=== PATIENT | female | born 1965 | race Caucasian/White ===

== ENCOUNTER 2018-09-25 15:35 | Emergency (ER) | payer MEDICAID ==
[~2018-09-25] VITALS: Ht 162.6 cm; Wt 65.5 kg
[~2018-09-25 15:35] MED LIST: AMBIEN 5MG TABLE5 MG PO; AMBIEN5 MG PO; B-12 500 MCG; CENA K40 MEQ/15 PO; COMPAZINE 110 MG/TAB PO; IRON325 M2 PO; LASIX 20MG TABL20 MG PO; MULTI VITAMINS1 TAB PO; PRINIVIL10 MG PO; XANAX2 MG PO; ZANAFLEX CAPSULE4 MG PO
[2018-09-25 15:44] VITALS: TEMP 97.1
[2018-09-25 16:10] LABS: BASO % 0.5 % (0.0-2.0); EOS # 0.1 (0.0-0.7); EOS % 0.6 % (0-4.0); GRAN % 75.7 % (42.2-75.2); LYMPH % 13.1 % (20.0-51.0); MEAN CELL VOLUME 102 fl (80.0-100.0); MEAN CORPUSCULAR HEMOGLOBIN 36 pg (27.0-31.0); MEAN CORPUSCULAR HGB CONC 35 g/dl (33.0-37.0); MEAN PLATELET VOLUME 9.6 fl (7.4-10.4); MONO # 0.7 (0.1-0.6); MONO % 8.7 % (1.7-9.3); PLATELET COUNT 200 K/mm3 (130-400); RED BLOOD COUNT 3.35 M/mm3 (4.10-5.30); REDCELL DISTRIBUTION WIDTH-CV 17.6 % (11.5-14.5)
[2018-09-25 16:13] LABS: HEMATOCRIT 34.1 % (37.0-47.0)
[2018-09-25 16:14] LABS: INR 0.9 (0.8-3.0); PROTHROMBIN TIME 9.9 SECONDS (9.7-12.8)
[2018-09-25 16:24] LABS: ALANINE AMINOTRANSFERASE 6 U/L (9-52); ALBUMIN 3.5 gm/dL (3.5-5.0); ALKALINE PHOSPHATASE 121 U/L (50-136); ANION GAP 11 mmol/L (7-16); AST,SGOT 23 U/L (15-37); BILIRUBIN,TOTAL 0.3 mg/dL (0.0-1.0); BLOOD UREA NITROGEN 12 mg/dL (7-17); C-REACTIVE PROTEIN 1.7 mg/dL (0.0-0.9); CALCIUM 9.7 mg/dL (8.4-10.2); CARBON DIOXIDE 21 mmol/L (22-30); CHLORIDE 98 mmol/L (98-107); CREATINE KINASE 25 U/L (30-135); CREATININE, serum 0.43 (0.52-1.25); GLUCOSE 119 mg/dL (74-106); MAGNESIUM 1.7 mg/dL (1.6-2.3); POTASSIUM 3.1 mmol/L (3.4-5.0); SODIUM 129 mmol/L (137-145); TOTAL PROTEIN 6.7 gm/dL (6.4-8.2)
[2018-09-25 16:30] LABS: ALCOHOL(ethanol),MEDICAL < 10 mg/dL; LIPASE 2290 U/L (23-300)
[2018-09-25 16:35] LABS: TROPONIN-I < 0.012 ng/mL (0.000-0.035)
[2018-09-25] MEDS ORDERED: AMBIEN 10MG10 MG PO (16:43)
[2018-09-25] MEDS ORDERED: ZOFRAN 4MG T4 MG/TAB PO (16:44)
[2018-09-25] MEDS ORDERED: PRIL40 PO (16:44)
[2018-09-25] MEDS ORDERED: FLECTOR1.3% (16:45)
[2018-09-25] MEDS ORDERED: BUSPAR5 MG PO (16:46)
[2018-09-25] MEDS ORDERED: ZOLOFT 100MG100 MG PO (16:47)
[2018-09-25] MEDS ORDERED: ARMOUR THYROID60 MG PO (16:48)
[2018-09-25] MEDS ORDERED: PROVENTIL0.09 MG/A1 IH (16:49)
[2018-09-25] MEDS ORDERED: FIORICET 325 MG1 TA1 PO (16:49)
[2018-09-25 17:37] LABS: COLLECTION METHOD CLEAN CATCH
[2018-09-25 17:43] LABS: PH 7 (5-8); SQUAMOUS EPITHELIAL 0-2 /hpf; URINE APPEARANCE Clear; URINE BACTERIA Rare /hpf; URINE BILIRUBIN Negative (NEGATIVE); URINE BLOOD Negative (NEGATIVE); URINE COLOR Straw; URINE GLUCOSE Negative (NEGATIVE); URINE KETONE Negative (NEGATIVE); URINE LEUKOCYTE ESTERASE Negative (NEGATIVE); URINE NITRATE Negative (NEGATIVE); URINE PROTEIN(semi-quant) Negative (NEGATIVE); URINE RBC 0-2 /hpf; URINE UROBILINOGEN Negative (NEGATIVE)
[2018-09-25 19:42] VITALS: BP 162/108; PULSE 85
== END 2018-09-25 18:06 | disposition short-term general hospital (02) ==
LOC: COL.ER 15:35
PROVIDERS: Emergency Medicine
DX: K85.90 Acute pancreatitis without necrosis or infection, unspecified (principal); R53.1 Weakness; F32.9 Major depressive disorder, single episode, unspecified; F41.9 Anxiety disorder, unspecified; I10 Essential (primary) hypertension; Z98.51 Tubal ligation status; Z98.890 Other specified postprocedural states; Z98.84 Bariatric surgery status
CPT/HCPCS: J2405; J7030

== ENCOUNTER 2018-10-02 15:33 | Inpatient (IN) | payer MEDICAID ==
[~2018-10-02] VITALS: Ht 162.6 cm; Wt 69.8 kg
[~2018-10-02 15:33] MED LIST changes: +AMBIEN 10MG10 MG PO; +ARMOUR THYROID60 MG PO; +BUSPAR5 MG PO; -CENA K40 MEQ/15 PO; +FERRO-TIME325 MG PO; +FIORICET 325 MG1 TA1 PO; +FLECTOR1.3% TOP; -IRON325 M2 PO; +K-DUR20 MEQ PO; +PRIL40 PO; +PROVENTIL0.09 MG/A1 IH; +ZANAFLEX 4MG TAB4 MG PO; -ZANAFLEX CAPSULE4 MG PO; +ZOFRAN 4MG T4 MG/TAB PO; +ZOLOFT 100MG100 MG PO
[2018-10-02] MEDS ORDERED: ROXICODONE 55 MG/TAB PO (19:49)
[2018-10-02] MEDS ORDERED: LYRICA 100MG C100 M1 PO (19:50)
[2018-10-02] MEDS ORDERED: FIORICET 325 MG1 TA1 PO (19:54)
[2018-10-02 19:57] VITALS: BP 97/66; PULSE 80; TEMP 98.3
--- NOTE | 2018-10-02 20:35 | NUR ---
Report from nurse Nika at [facility]. Pt arrived at shift change via transport service. JONATHON Mcgovern settled pt in room 335 and edu about ordering meals. Report to NAMAN Coronado. This nurse will enter pt's meds and that is all.
[2018-10-03 04:58] VITALS: BP 104/68; PULSE 96; TEMP 98
--- NOTE | 2018-10-03 06:30 | NUR ---
PT REQUEST MORE FIORCET. TOO SOON. RELATES MIGRAINE IS ON THE WAY TO BE FULL BLOWN. SEE MAR FOR ROXICODOE GIVEN. SCD'S APPLIED. RT EYE LID HALF MAST AT TIMES.
--- NOTE | 2018-10-03 07:58 | NUR ---
Report from NAMAN Coronado. SCDs in place, good pulses to BLE, left heel pink but blances. Pt reports she is lactose intolerant since gastric bypass; however, she reports tried milk and hot ramon this morning so she may become sick to her stomach.
--- NOTE | 2018-10-03 13:26 | NUR ---
Initial visit; Patient thanked Auto Bumper Mechanic for looking in on her, listening and offering spiritual care. Patient is optimistic about her health improving through physical therapy. Auto Bumper Mechanic will keep patient in her prayers and follow up while she is a patient here.
--- NOTE | 2018-10-03 14:13 | NUR ---
Pt asking for benadryl for pruritis, no orders for it, left voicemail with Dr. Beatty.
--- NOTE | 2018-10-03 14:16 | NUR ---
brought a different home med than requested, instructed him to re-order med from pt's pharmacy as they were out of med at home.
--- NOTE | 2018-10-03 15:56 | NUR ---
Faxed Dr. Lechuga' office request for orders for weight bearing status and ROM orders for pt's LENNIE
[2018-10-03 16:04] VITALS: BP 118/69; PULSE 87; TEMP 98.8
--- NOTE | 2018-10-03 16:21 | NUR ---
SW met with patient for initial intake, as patient is new to [facility]. Patient reports that prior to her hospitalization at [facility], she lived relatively independent at home with help from her boyfriend, Roberto. Patient's PCP is KIET Clark and she obtains prescriptions from [facility] in [facility]. Patient reports she has a front wheeled walker and wheelchair at home but has not needed to use them. Patient does not have any home health services but would be interested in any services that would help her clean, cook, grocery shop, and provide meals. Patient reported that her insurance has a program called [employer] that provide these services. SW reported she will look into this program. SW also informed patient of Saturday Team Conference's and also that the [facility] will try to schedule a family conference at least once during her time in rehab.
--- NOTE | 2018-10-03 20:30 | NUR ---
PT RESTING IN BED. BOYFRIEND APPLYING LOTION TO BLE. THEN PLACED SCD'S ON. PT DENIED NEED FOR PAIN MED A THIS TIME. NO HEADACHE. WANTS AMBIEN LATER.
--- NOTE | 2018-10-03 23:48 | NUR ---
PT REQUESTED PAIN MED PER CALL LIGHT. ATTEMPTED TO WAKE PT UP TO SEE WHAT SHE NEEDED. HAD TO SHAKE HER ARM. DIFFICULT TO WAKE AND UNDERSTAND- VERY DROWSY. TOO SOON FOR PAIN MEDICATION. PT RETURNED TO SLEEP.
--- NOTE | 2018-10-04 01:45 | NUR ---
GAVE FIORCET FOR MIGRAINE PER REQUEST FOR "ON THE EDGE OF A SEVERE MIGRAINE". ASSISTED TO BSC. VERY UNSTEADY. PT VERY TALKATIVE. VOIDED LARGE AMT OF CLEAR DILUTE YELLOW URINE. ABLE TO MANAGE TOILETING TASKS WHILE MAX STEADYING NEEDED BY STAFF. KNEES VERY UNSTABLE PT REQUESTED OXYCODONE FOR "TERRIBLE MUSCLE PAIN ALL OVER". SEE MAR. SCD'D ON, CALL LIGHT IN REACH. BED ALARM SET.
--- NOTE | 2018-10-04 02:21 | NUR ---
PT NOW WANTS BENADRYL FOR ITCHING. "MAYBE I'LL GO TO SLEEP." PT READING ON HER CELL PHONE. NO DISTRESS.
[2018-10-04 05:17] VITALS: BP 133/71; PULSE 96; TEMP 98.8
--- NOTE | 2018-10-04 08:00 | NUR ---
PT STATES SHE ALWAYS HAS PAIN AND IT IS 4/10. SO SHE IS OK FOR NOW. SHE DID TAKE HER FIORECET THIS AM. PT WAS ASSISTED TO BR AND THEN GOT CHANGED FOR THERAPY. ATE 100% MEAL. GAVE AM MEDS, TOLERATED THEM WELL. NICODERM PATCH REMOVED FROM LEFT UPPER SHOULDER AND NEW ONE PLACED TO RIGHT UPPER BACK ON HER SHOULDER. PT REPORTED FEELING NAUSEATED FROM THE FARFAN SO WAS GIVEN ZOFRAN FOR RELIEF. PT WENT DOWN TO THERAOY AT 0920
--- NOTE | 2018-10-04 10:39 | NUR ---
PT HAD A SMALL GREENISH STOOL SF.
--- NOTE | 2018-10-04 10:40 | NUR ---
PT LEAVES WITH THERAPY
--- NOTE | 2018-10-04 10:45 | NUR ---
Patient was gone to Physical Therapy.
--- NOTE | 2018-10-04 11:30 | NUR ---
RETURNS FROM THERAPY, BACK TO ROOM
--- NOTE | 2018-10-04 15:21 | NUR ---
SLEEPING IN BED
[2018-10-04 17:39] VITALS: BP 118/72; PULSE 91; TEMP 98.6
--- NOTE | 2018-10-04 19:45 | NUR ---
PT RELATES PAIN IS LEVEL 8/10 ALL OVER. SEE MAR FOR OXYCODONE. PT HAS GENERAL WEAKNESS. NEED MOD ASSIST TO TRANSFER BSC. VOIDING ITHOUT DIFFICULTY. SCD'S ON BILAT. BOYFRIEND AT BEDSIDE. HE IS STAYING THE NIGHT.
[2018-10-05 06:00] VITALS: BP 131/70; PULSE 55; PULSE 98; TEMP 98.2
--- NOTE | 2018-10-05 09:59 | NUR ---
Report from NAMAN Coronado. Pt called to toilet, assit w/ hemiwalker and offered hand to pt's left arm. Returned to bed, declined sitting up in recliner nor wc. SO Roberto powell.
[2018-10-05 16:36] VITALS: BP 136/82; PULSE 89; TEMP 99.1
--- NOTE | 2018-10-05 18:32 | NUR ---
Zofran for nausea, pt thinks from egg salad sandwich
--- NOTE | 2018-10-05 19:49 | NUR ---
Pt's teenage grandsons visited this afternoon and played cards with pt. Increased pain this afternoon, provided pain meds, KPAD, warm blanket, pillow under legs, broth.
--- NOTE | 2018-10-05 20:30 | NUR ---
PT RESTING IN BED. WATCHING TV. C/O LOWER PORTION OF BODY HURTS WORSE THAN EVER BEFORE. NO CHANGE IN VACULAR CHECKS. PPP. SKIN WARM TO TOUCH. ABLE TO FLEX AND EXTENEND. GAVE SCHEDULE PM MEDS. INCLUDING LYRICA. WILL GIVE PAIN WHEN TIME. WANTS TO USE BED MEADOWS. ENC TO USE BSC WITH ASSIST. CHET WELL. VOIDS W/O DIFFICULTY. RETURNS TO BED.
[2018-10-06 05:30] VITALS: BP 143/70; PULSE 70; TEMP 98
--- NOTE | 2018-10-06 11:00 | NUR ---
Follow-up visit; Patient thanked Automotive Specialty Technician for stopping in and offering encouragement and Blessings.
--- NOTE | 2018-10-06 11:29 | NUR ---
Patient reporting headache pain and was worried about getting a migrain given prn fioricet and benadryl. Patient attending all therapies this morning. Nicoderm patch was placed on patient's right shoulder this morning, but after therapies down in the therapy gym her patch was gone. Staff found patch attached to a pillow downstairs. This patch was discarded and new patch was applied to arm.
--- NOTE | 2018-10-06 12:09 | NUR ---
Patient resting in bed at this time, call light in reach and meeting with Dr. Beatty. Patient had a shower this morning, taking prn pain meds that have been effective. Patient is independent with eating.
--- NOTE | 2018-10-06 14:12 | NUR ---
ORIANA contacted the pt's insurance to inquire about home services for the pt. The pt has to contact the Physical Disablity (PD) Waiver Program at to apply and be put on a waiting list. The pt has a top case assembler for behavior health medication management Courtney Garcia at extension [phone]. SW will inform the patient. ORIANA will continue to follow to assist with any discharge recommendations.
--- NOTE | 2018-10-06 14:42 | NUR ---
ORIANA met with the patient to discuss home services. The pt reports she has nisha applied for the PC Waiver with assistance from her PCP and the [facility] in [place]. SW attempted to contact Rama Hawkins at [facility] and left message. The pt reports that [facility] was going to provide some of the home services. ORIANA will continue to follow to assist with discharge recommendations.
[2018-10-06 15:35] VITALS: BP 115/77; PULSE 85; TEMP 98.2
--- NOTE | 2018-10-06 18:06 | NUR ---
Patient resting in bed at this time following eating her supper. Patient requested a pain pill as well as a benadryl to help with itching. Patient not reporting any nausea this afternoon. Tolerated diet well this afternoon and evening. Will continue to monitor.
--- NOTE | 2018-10-06 20:00 | NUR ---
Patient requests pain med for breakthrough pain and scheduled meds along with fiorocet reviewed and given. Patient states didn't bring her home med/not given. Assisted to the bathroom/min to mod assist. Holds onto nurses arm with left hand for stability and has nurse assist with left side of underwear up/wipes self. SCD's removed and socks removed for now. BLE elevated on pillow and kpad turned on-to patients legs. Snack of broth and diet pepsi given. Senokot s given for constipation.
--- NOTE | 2018-10-07 02:00 | NUR ---
Patient rests with eyes closed. Respirations with ease.
[2018-10-07 03:59] VITALS: BP 131/69; PULSE 106; TEMP 98.1
--- NOTE | 2018-10-07 08:27 | NUR ---
Patient resting in bed at this time, call light in reach. Patient using kpad for pain at this time. Some nausea this am given prn nausea med.
--- NOTE | 2018-10-07 12:35 | NUR ---
Patient resting in bed at this time, call light in reach and bed alarm is on. Patient reported pain 6/10 at this time with pain increasing. Given prn Oxi with Benadryl to help with itching. Will continue to monitor.
[2018-10-07 15:50] VITALS: BP 113/63; PULSE 82; TEMP 97.8
--- NOTE | 2018-10-07 16:35 | NUR ---
SW met with the patient to discuss Home and Community Bases Programs. The pt provided a letter of approval for [employer]: TAJ ID: [id number] FREDYO: John. SW placed a copy of approval letter in the pt's chart. ORIANA will continue to follow.
--- NOTE | 2018-10-07 17:39 | NUR ---
Patient attended all therapies today, had some leg weakness this afternoon following group therapy. Patient has had a nap this afternoon and is currently eating supper at this time.
--- NOTE | 2018-10-07 19:00 | NUR ---
Reports feeling very queezy and zofran 4mg given. 1 hour later states zofran helped and no further nauseated.
--- NOTE | 2018-10-07 22:19 | NUR ---
Patient now rests in bed with eyes closed. Respirations with ease.
--- NOTE | 2018-10-08 00:56 | NUR ---
Patient awake and took ambien at this time. Requested fiorecet for breakthrough pain legs and left arm 09/03 and given.
--- NOTE | 2018-10-08 02:10 | NUR ---
Patient rests with eyes closed. Respirations with ease.
[2018-10-08 05:04] VITALS: BP 114/68; PULSE 90; TEMP 98.3
--- NOTE | 2018-10-08 05:10 | NUR ---
Awakened for vitals and meds. Denies needs. "Just wish you didn't have to wake me up this early".
[2018-10-08 07:03] LABS: BILIRUBIN,TOTAL 0.1 mg/dL (0.0-1.0); CALCIUM 9.1 mg/dL (8.4-10.2); CREATININE, serum 0.48 (0.52-1.25); MAGNESIUM 1.8 mg/dL (1.6-2.3); POTASSIUM 3.6 mmol/L (3.4-5.0); TOTAL PROTEIN 6.8 gm/dL (6.4-8.2)
[2018-10-08 07:13] LABS: BASO # 0.1 (0.0-0.2); BASO % 1.6 % (0.0-2.0); EOS # 0.1 (0.0-0.7); EOS % 1.3 % (0-4.0); GRAN # 2.1 (1.4-6.5); GRAN % 55.6 % (42.2-75.2); LYMPH # 1.1 (1.2-3.4); LYMPH % 28.1 % (20.0-51.0); MEAN CELL VOLUME 108 fl (80.0-100.0); MEAN CORPUSCULAR HGB CONC 32 g/dl (33.0-37.0); MONO # 0.5 (0.1-0.6); MONO % 12.6 % (1.7-9.3); PLATELET COUNT 242 K/mm3 (130-400); RED BLOOD COUNT 2.66 M/mm3 (4.10-5.30); REDCELL DISTRIBUTION WIDTH-CV 16.9 % (11.5-14.5)
[2018-10-08 07:17] LABS: HEMATOCRIT 28.6 % (37.0-47.0); HEMOGLOBIN 9.2 g/dl (12.5-16.0); MEAN CORPUSCULAR HEMOGLOBIN 35 pg (27.0-31.0)
--- NOTE | 2018-10-08 07:46 | NUR ---
Pt is awake and A/Ox4, sitting up in bed watching TV. She states she is having 7/10 pain/discomfort in her arms and legs; requested PRN roxicodone for this. Reports continued feeling of "pins and needles." Pt able to reposition herself in bed. Able to make needs known. Denies any other needs.
--- NOTE | 2018-10-08 11:22 | NUR ---
Pt resting in bed, hoping to take a nap before lunch. Denies any other needs.
--- NOTE | 2018-10-08 13:01 | NUR ---
Pt requested PRN fiorecet for headache. Pt to PT at this time.
--- NOTE | 2018-10-08 16:01 | NUR ---
ORIANA met with the patient to discuss the Team Conference I and discharge recommendations. The pt inquired about the [facility] and Home and Community Based Programs. SW to follow up with Rama Hawkins at [facility]. The pt had no other questions at this time. The team is recommending a robb-walker. SW to send order for robb-walker. The team is recommending home health. The only agency that provides serivce to [place] is [facility]. ORIANA attempted to contact Ja[facility] to verify they would take the pt's insurance. ORIANA left message. ORIANA will continue to follow.
[2018-10-08 18:55] VITALS: BP 130/78; PULSE 101; TEMP 98.2
--- NOTE | 2018-10-08 20:00 | NUR ---
PT RESTING IN BED. ASSISTED TO BR. VERY WEAKLOOSE GAIT. POOR GENERLIZED MUSCLE CONTROL OF EXTREMITIES. PT RELATES "HURTS SO BAD". ALL OVER BUT ESPECIALLY LEGS AND FEET. BURNING, TINGLING SENSATAION OF FEET. K PAD TO ABD AREA FOR MUSCLE PAIN. TOO SOON FOR PAIN MED- OXYCODONE.
[2018-10-09 05:01] VITALS: BP 143/89; PULSE 95; TEMP 98.6
--- NOTE | 2018-10-09 05:05 | NUR ---
ASSISTED TO BR WITH HEMIWALKER. VERY UNSTEADY GAIT WITH VERY WEAK KNEES. HAD XL GREEN ELDER FROTHY STOOL WITH VOID. BACK TO BED. C/O PAIN LOWER HALF OF BODY LEVEL 10/04. SEE APR.
--- NOTE | 2018-10-09 11:38 | NUR ---
pt back to bed after therapy.
--- NOTE | 2018-10-09 13:56 | NUR ---
PT SLEEPING AFTER THERAPY.
--- NOTE | 2018-10-09 13:57 | NUR ---
Spoke w/ pt about Family Conference for 10/13/18. She thought that sounded fine but wanted to know if it could be later in the day. Told her the latest we could do is 3:00 pm. She told SW she would take with her friends & let SW know tomorrow.
--- NOTE | 2018-10-09 15:39 | NUR ---
PT UP TO BR VOIDED AND RETURNED TO BED WITH HANDS ON ASSIST.
[2018-10-09 17:09] VITALS: BP 149/92; PULSE 84; TEMP 98.5
--- NOTE | 2018-10-09 20:00 | NUR ---
PT RESTING IN BED WATCHING TV. WAITING UNTIL ITS TIME FOR PAIN MED. PT RELATES PRICKLY FEELING TO LEGS IS WORSE TONIGHT.
[2018-10-10 04:47] VITALS: BP 138/90; PULSE 95; TEMP 98.4
--- NOTE | 2018-10-10 11:30 | NUR ---
Patient attended therapies this morning. Given zofran for nausea this morning. Patient currently resting in recliner at this time, call light in reach and chair alarm is on. Will continue to monitor.
--- NOTE | 2018-10-10 11:55 | NUR ---
Patient resting in bed at this time eating her supper. Bed alarm is on.
[2018-10-10 16:28] VITALS: BP 144/89; PULSE 90; TEMP 98.9
--- NOTE | 2018-10-10 16:30 | NUR ---
ORIANA faxed referral to [facility]. ORIANA will continue to follow. F# P#
--- NOTE | 2018-10-10 17:50 | NUR ---
Patient attended all therapies today. She tolerated all her meals well. Pain was controlled with prn pain meds. Continues to have numbness/tingling to lower extremities and generalized pain as well. Patient has slip proof socks on, call light in reach and family by her side. Patient needed incidental help with grooming due to not being able to reach back of head to comb it. She took pills whole with water independently. Was able to make her needs known.
--- NOTE | 2018-10-10 19:50 | NUR ---
Pt resting in bed after ambulating to bathroom with PCT. Pt c/o pain 8 primarily in bilateral legs. Pain is described as burning. Tylenol given. It is not time for Oxycodone. Pt states she will see if the Tylenol will help. Pt also reports some increased nausea since eating dinner. PRN Zofran given per patient requested. Respirations are even and unlaobred. Lungs clear. Abdomen soft, nontender. BS+. Pt reports "pins and needles feeling" in bilateral upper and lower extremities. Pt denies further needs at this time. Will continue to monitor.
--- NOTE | 2018-10-10 21:18 | NUR ---
Pt reports increased pain 9/10 in bilateral lower extrimities- burning. Pt states Tylenol did not help. PRN pain medication given. Pt also reports that Zofran did not help nausea. PRN Compazine given. Scheduled HS medication given. Pt also gave nurse her home Flector patches to be sent to pharmacy to use. No other needs noted. Will continue to monitor.
--- NOTE | 2018-10-10 22:18 | NUR ---
Pt reports nausea has resolved, but pain has not decreased much. Pain is now a 7/10. Pt denies needs.
--- NOTE | 2018-10-11 00:15 | NUR ---
Pt assisted to bathroom with hemiwalker and gait belt. Well tolerated. Pt voiding clear, yellow urine. Small soft formed BM. Pt c/o pain 7/10 in Bilateral upper and lower extremities- burning. she is also c/o a headache-/10. Fioricet PRN given.
[2018-10-11 05:00] VITALS: BP 143/85; PULSE 101; TEMP 97.9
--- NOTE | 2018-10-11 05:10 | NUR ---
Pt back in bed after ambulating to bathroom and back with PCT. Pt is resting in bed. No distress noted. Pt states her pain has increased to 6-7/10 in bilateral lower extremities after ambulation. Pain is described as burning. PRN pain medication given. Pt does report sleeping "much better" last night. No other needs noted.
--- NOTE | 2018-10-11 13:36 | NUR ---
A robb-walker is being recommended for the patient. ORIANA presented the DME choice form to the pt. The pt chose [facility] and signed the form. A copy was provided to the pt and original was placed in pt's chart. ORIANA faxed physician order form, HNP and PT notes to . ORIANA attempted to contact [facility] there was no answer; ORIANA left message. ORIANA will continue to follow.
[2018-10-11] MEDS ORDERED: FLECTOR1.3% TOP (13:53)
--- NOTE | 2018-10-11 14:22 | NUR ---
0800 - MEDS GIVEN THIS AM. PT ATE HER MEAL. PT WAS GIVEN MIRALAX PER REQUEST AND PT HAD AN EXTRA LARGE SF GREENISH STOOL. 0930 - PT LEFT WITH THERAPY 1030 - PT RETURNS FROM THERAPY WALKING WITH ALICE WALKER. 1200 - GETS LUNCH TRAY. UP TO VOID TWICE.
--- NOTE | 2018-10-11 15:24 | NUR ---
SLEEPING WITH RESP EVEN AND NON LABORED
[2018-10-11 17:02] VITALS: BP 117/75; PULSE 101; TEMP 98.6
--- NOTE | 2018-10-11 20:00 | NUR ---
Patient report received from NAMAN Damon at shift change. Upon assessment at this time patient is resting comfortably in bed. Reports pain at 5/10 to left shoulder, prn paulette, benadryl and zofran given at this time with HS meds. Patch applied to left shoulder and reinforced with paper tape. No other needs reported/observed.
[2018-10-12 03:28] VITALS: BP 133/75; PULSE 94; TEMP 97.5
--- NOTE | 2018-10-12 07:10 | NUR ---
Patient report given to NAMAN Damon. Patient is resting comfortably at this time.
--- NOTE | 2018-10-12 11:09 | NUR ---
PT IS IN BED. REPORTS PAIN GENERALZIED WAS GIVEN EDY AND BENADRYL AT 1015.
--- NOTE | 2018-10-12 13:57 | NUR ---
PT WAS GIVEN TYLENOL 650 MG FOR GENERAL DISCOMFORT
[2018-10-12 15:44] VITALS: BP 136/81; PULSE 80; TEMP 97.7
--- NOTE | 2018-10-12 19:20 | NUR ---
Pt resting in bed. Pt reports pain 7/10- pins and needles. Helped up to bathroom with hemiwalker. Voiding clear, yellow urine. Respriations even and unlaobred. Lungs clear. Abdomen soft, nontender. BS+. No edema noted. Pt denies needs at this time. Will continue to monitor.
--- NOTE | 2018-10-12 20:30 | NUR ---
Pt called c/o nausea d/t unrelieved pain. PRN Zofran given. Will bring PRN pain medication when appropriate.
--- NOTE | 2018-10-12 21:54 | NUR ---
PRN pain medication given for pain 7/10- generalized burning/"pins and needles".
[2018-10-13 03:47] VITALS: BP 146/88; PULSE 87; TEMP 97.6
--- NOTE | 2018-10-13 05:35 | NUR ---
Pt resting this AM. Pt slept periodically throughout the night. Up multiple times to bathroom with hemiwalker. Well tolerated. Pt c/o tingling/burning pain in Bilateral upper and lower extremities. PRN pain medication given x2 doses. Pt denies needs.
--- NOTE | 2018-10-13 08:54 | NUR ---
[facility] reports they do have a robb-walker for the pt. Patient has to worm picker; they do not deliver. SW to inform the pt. SW will continue to follow.
--- NOTE | 2018-10-13 10:34 | NUR ---
Patient currently resting in bed, call light in reach, bed alarm on and has slip proof socks on. Patient tolerated meal this morning. Denies any nausea at this time, but did get a prn nausea med with her breakfast this morning. Pain has been managed with prn oxi this morning and has been effective. Patient was independent with her meal, was independent with her grooming. Was a one person SBA with transferring from bed to toilet and back. Patient picked out her own clothes this morning and got herself fully dressed on her own. Patient has an excellent memory and is great a problem solving.
--- NOTE | 2018-10-13 11:06 | NUR ---
[facility] reports they can accept the pt for home health services. SW to inform pt. SW will continue to follow.
--- NOTE | 2018-10-13 15:00 | NUR ---
A Family Conference was conducted with pt & pt's significant other. Also present was PT, OT, SW, & Torch Straightener. Torch Straightener started by explaining the purpose of the meeting. The therapists explained how pt has been functioning & making good progress. Informed them of d/c for , 10/16/18 with recommendations for home w/ home health PT/OT. Also recommending a hemiwalker. They asked questions which team answered. Pt & significant other are pleased with progress & care pt is receiving.
[2018-10-13 16:28] VITALS: BP 143/88; PULSE 79; TEMP 98.2
--- NOTE | 2018-10-13 19:00 | NUR ---
Pt resting in bed. Ambulated to bathroom with 1 assist and hemiwalker. Well tolerated. Voiding clear, yellow urine. Pt reports generalized tingling pain in extremities- 6/10. Respirations even and unlabored. Lungs clear. Abdomen soft, nontender. BS+. Pt reports some nausea after eating dinner. Pt also c/o epigastric tightness/pressure. She states that it happens every night after dinner. No needs noted. Will continue to monitor.
--- NOTE | 2018-10-13 19:00 | NUR ---
Patient's boyfriend came by to visit this afternoon. Patient attended all therapies today and tolerated diet well. She has been making healthy choices for her meals.
--- NOTE | 2018-10-13 19:15 | NUR ---
Pt refuses Flector patch tonight. She states she only puts them on when her shoulder is "really hurting". Pt denies shoulder pain citing that PT "did not work it today". AM Flector patch removed, but not replaced.
[2018-10-14 05:18] VITALS: BP 122/77; PULSE 95
--- NOTE | 2018-10-14 05:30 | NUR ---
Pt up to bathroom and back to bed with 1 assist and hemiwalker. Pt c/o headache and generalized body tingling pain. PRN and AM meds given. Pt slept periodically throughout the night and denies further needs.
[2018-10-14 17:37] VITALS: BP 138/79; PULSE 100; TEMP 98
--- NOTE | 2018-10-14 20:03 | NUR ---
Patient attended all therapies today. Tolerated diet well. Was observation only with all transfers. Patient wiped and pulled her pants up and down independently. She was continent of Bowel and Bladder. Uses her call light appropriatly. Patient had an episode of very irritating pain that was tingling sharp twinges to bilateral arms and hands. She requested that her arm bands be removed as they were driving her crazy. This nurse placed her arm bands on her right ankle for the evening. The nurse in the AM can place them back on her wrist tomorrow.
--- NOTE | 2018-10-14 22:20 | NUR ---
HS meds along with fioricet, roxycodone and benadryl reviewed and given. Declines snack. Rests in bed and complaints of 8/10 headache, BLE burning and left shoulder pain. BP 146/66. SCD's removed per patient request. (states was taking lisinopril BID amd nurse noted now is QD in am.)
--- NOTE | 2018-10-15 01:49 | NUR ---
Rests with eyes closed. Respirations with ease.
--- NOTE | 2018-10-15 05:17 | NUR ---
STATES RESTED WELL TONIGHT AFTER SLEEPING PILL
[2018-10-15 05:21] VITALS: BP 142/86; PULSE 91; TEMP 98
--- NOTE | 2018-10-15 10:12 | NUR ---
Report from NAMAN Diaz. Pt showering with OT, alert, oriented, pain meds given per request. Takes pills with thin liquids, large K+ tabs cut in half. Diclofenac patch to left upper arm, nicotine patch to RUE. Cont to report numbness up to armpits, with generalized feeling of knives.
--- NOTE | 2018-10-15 13:09 | NUR ---
Pt refusing SCDs as she states they aggravate her neuropathy pains.
--- NOTE | 2018-10-15 14:57 | NUR ---
SW present team conference notes to the pt. The pt discussed how happy she was with her progress and was happy with her care. There are no questions or concerns at this time. SW will continue to follow.
--- NOTE | 2018-10-15 15:02 | NUR ---
Diaz CPTA called this nurse at this time to report that pt had a fall during therapy session while in the parallel bars, pt reported wanting to stretch her left leg so she raised it up higher than usual and pt's right knee buckled and she fell. Pt denied any pain or complications and returned to her room. This nurse had checked on patient prior to knowledge of fall and pt was sitting bedside, only c/o same pains but lesser than prior to pain med being given.
[2018-10-15 15:25] VITALS: BP 130/80; PULSE 85; TEMP 98.2
--- NOTE | 2018-10-15 22:00 | NUR ---
Rests in bed visiting on phone. Reports different types of pain all over body. Legs "feel like razor blades going down them". HS meds along with fiorcet reviewed and given. Patient is modified independent in her room with robb-walker.
--- NOTE | 2018-10-15 23:39 | NUR ---
Patient reports legs feeling weak/painful since rubbed them on bed and next to each other and requests supervision to and from bathroom/done. Ambulates hesitant and careful/manages all toileting tasks and rests back in bed. Requests nurse to place pillow under RLE and pull blankets up/done.
[2018-10-16 05:31] VITALS: BP 138/76; PULSE 92; TEMP 97.9
[2018-10-16] MEDS ORDERED: FERROUS SU325 MG/TAB PO (11:23)
[2018-10-16] MEDS ORDERED: ZESTRIL 10MG10 MG PO (11:24)
[2018-10-16] MEDS ORDERED: LYRICA 100MG C100 M1 PO (11:34)
[2018-10-16] MEDS ORDERED: ROXICODONE 55 MG/TAB PO (11:34)
--- NOTE | 2018-10-16 11:44 | NUR ---
The pt is to discharge home today, 10/16 with [facility] out of [place]. ORIANA faxed discharge orders. There are no additional needs at this time.
[2018-10-16] MEDS ORDERED: ZOFRAN 4MG T4 MG/TAB PO (11:45)
[2018-10-16] MEDS ORDERED: CHANTIX START M1 TAB PO (11:45)
--- NOTE | 2018-10-16 15:37 | NUR ---
Pt mod I in room with brit. Pain meds given per request. No acute changes. Denies any side effects of fall from yesterday.
[2018-10-16 15:41] VITALS: BP 118/79; PULSE 86; TEMP 98.3
--- NOTE | 2018-10-16 18:35 | NUR ---
Reviewed discharge orders.
--- NOTE | 2018-10-16 20:01 | NUR ---
Printed pt health summary, discharge summary, home med list and reviewed with pt and SO Roberto. Stressed importance of follow up appointments and home health orders for labs. Provided three printed prescriptions and pt made note of OTC meds pt needed to get from her pharmacy, pt states her pharmacy confirmed receipt of new meds e-scripted. Belongings gathered by pt and SO including home med flector patches, sling, glasses, computer, cell phone and international marketing intern, grooming items, clothes, two gold-colored bracelettes and gold pendant necklace. Revised copy of home med list to chart. Answered pt's questions. Pt toileted, then transported via wheelchair by JONATHON Mcgovern for ride home with DEEPA Mejia.
== END 2018-10-16 18:40 | disposition home health service (06) | DRG 947 ==
PROVIDERS: ADMIT Internal Medicine
DX: R53.81 Other malaise (principal); K85.90 Acute pancreatitis without necrosis or infection, unspecified; G61.0 Guillain-Barre syndrome; G89.29 Other chronic pain; M54.5 Low back pain; I10 Essential (primary) hypertension; E03.9 Hypothyroidism, unspecified; K21.9 Gastro-esophageal reflux disease without esophagitis; M54.9 Dorsalgia, unspecified; F10.10 Alcohol abuse, uncomplicated; F41.9 Anxiety disorder, unspecified; F32.9 Major depressive disorder, single episode, unspecified; F17.210 Nicotine dependence, cigarettes, uncomplicated; Z96.652 Presence of left artificial knee joint; Z88.6 Allergy status to analgesic agent
CPT/HCPCS: 99222-AI; 99232-AI; 99239; A9284; J1650

== ENCOUNTER 2019-04-17 10:41 | Inpatient (IN) | payer MEDICAID ==
[~2019-04-17] VITALS: Ht 162.6 cm; Wt 74.0 kg
[~2019-04-17 10:41] MED LIST changes: +CHANTIX START M1 TAB PO; +FERROUS SU325 MG/TAB PO; +LYRICA 100MG C100 M1 PO; +ROXICODONE 55 MG/TAB PO; +ZESTRIL 10MG10 MG PO
[2019-04-17 11:35] LABS: COLLECTION METHOD CLEAN CATCH
[2019-04-17 11:38] LABS: BASO # 0.1 (0.0-0.2); BASO % 0.4 % (0.0-2.0); GRAN # 12.4 (1.4-6.5); HEMATOCRIT 48.1 % (37.0-47.0); HEMOGLOBIN 16.5 g/dl (12.5-16.0); LYMPH # 0.7 (1.2-3.4); LYMPH % 5.2 % (20.0-51.0); MEAN CELL VOLUME 104 fl (80.0-100.0); MEAN CORPUSCULAR HEMOGLOBIN 36 pg (27.0-31.0); MEAN CORPUSCULAR HGB CONC 34 g/dl (33.0-37.0); MEAN PLATELET VOLUME 9.6 fl (7.4-10.4); MONO # 0.4 (0.1-0.6); PLATELET COUNT 261 K/mm3 (130-400); RED BLOOD COUNT 4.63 M/mm3 (4.10-5.30); REDCELL DISTRIBUTION WIDTH-CV 12.7 % (11.5-14.5)
[2019-04-17 11:42] LABS: MUCOUS Present /lpf; PH 5 (5-8); URINE APPEARANCE Clear; URINE BACTERIA None Seen /hpf; URINE BILIRUBIN Negative (NEGATIVE); URINE BLOOD Negative (NEGATIVE); URINE COLOR Yellow; URINE GLUCOSE Negative (NEGATIVE); URINE KETONE 1+ (NEGATIVE); URINE LEUKOCYTE ESTERASE Negative (NEGATIVE); URINE NITRATE Negative (NEGATIVE); URINE PROTEIN(semi-quant) Negative (NEGATIVE); URINE UROBILINOGEN Negative (NEGATIVE)
[2019-04-17 11:44] LABS: INR 0.8 (0.8-3.0); PROTHROMBIN TIME 9.4 SECONDS (9.7-12.8)
[2019-04-17 11:54] LABS: ALANINE AMINOTRANSFERASE 27 U/L (9-52); ALBUMIN 4.9 gm/dL (3.5-5.0); ALCOHOL(ethanol),MEDICAL < 10 mg/dL; ALKALINE PHOSPHATASE 149 U/L (50-136); ANION GAP 12 mmol/L (7-16); AST,SGOT 41 U/L (15-37); BILIRUBIN,TOTAL 0.6 mg/dL (0.0-1.0); BLOOD UREA NITROGEN 15 mg/dL (7-17); C-REACTIVE PROTEIN < 0.5 mg/dL (0.0-0.9); CALCIUM 10.5 mg/dL (8.4-10.2); CARBON DIOXIDE 20 mmol/L (22-30); CHLORIDE 104 mmol/L (98-107); CREATININE, serum 0.53 (0.52-1.25); GLUCOSE 145 mg/dL (74-106); LIPASE 138 U/L (23-300); POTASSIUM 4.3 mmol/L (3.4-5.0); SODIUM 136 mmol/L (137-145); TOTAL PROTEIN 8.4 gm/dL (6.4-8.2)
[2019-04-17 12:36] LABS: TROPONIN-I < 0.012 ng/mL (0.000-0.035)
[2019-04-17] MEDS ORDERED: PHENERGAN 25 TA25 MG PO (12:57)
[2019-04-17 15:38] VITALS: BP 154/84; PULSE 74; TEMP 98.8
--- NOTE | 2019-04-17 15:40 | NUR ---
arrived on unit per and assisted into bed,
[2019-04-17] MEDS ORDERED: CYANOCOBAL1000 MCG/1 IM (15:55)
[2019-04-17] MEDS ORDERED: ZESTRIL 20MG TA20 MG PO (15:57)
[2019-04-17] MEDS ORDERED: PRILOSEC 20MG20 MG PO (15:58)
[2019-04-17] MEDS ORDERED: DAZIDOX20 MG PO (15:59)
[2019-04-17] MEDS ORDERED: LYRICA 100MG C100 M1 PO (16:01)
[2019-04-17] MEDS ORDERED: AMBIEN 10MG10 MG PO (16:03)
--- NOTE | 2019-04-17 16:15 | NUR ---
physical assessment completed, will let her rest and complete history later
--- NOTE | 2019-04-17 17:00 | NUR ---
admission history completed,
--- NOTE | 2019-04-17 17:15 | NUR ---
physical assessment compoleted, will let her rest and complete history later
--- NOTE | 2019-04-17 17:24 | NUR ---
c/o pain and medicated with dilaudid 0.5mg slow IV for c/os headache and abdominal pain
--- NOTE | 2019-04-17 18:30 | NUR ---
resting in bed with eyes closed
--- NOTE | 2019-04-17 19:00 | NUR ---
bedside shift report given to NAMAN Abbott
[2019-04-17 20:04] VITALS: BP 171/93; PULSE 71; TEMP 98.1
[2019-04-17 23:55] VITALS: BP 184/103; PULSE 77; TEMP 98.5
[2019-04-18] VITALS (16 sets, daily range): BP systolic 107–177; BP diastolic 62–108; PULSE 74–96; TEMP 97.6–98.6
--- NOTE | 2019-04-18 00:23 | NUR ---
PRN HYDRALAZINE ADMIN FOR SYSTOLIC BP GREATER THAN 160.
[2019-04-18 03:00] LABS: HEMATOCRIT 45.6 % (37.0-47.0); HEMOGLOBIN 15.6 g/dl (12.5-16.0); MEAN CELL VOLUME 104 fl (80.0-100.0); MEAN CORPUSCULAR HEMOGLOBIN 36 pg (27.0-31.0); MEAN CORPUSCULAR HGB CONC 34 g/dl (33.0-37.0); MEAN PLATELET VOLUME 9.6 fl (7.4-10.4); PLATELET COUNT 219 K/mm3 (130-400); RED BLOOD COUNT 4.38 M/mm3 (4.10-5.30); REDCELL DISTRIBUTION WIDTH-CV 12.8 % (11.5-14.5)
[2019-04-18 03:11] LABS: BILIRUBIN,TOTAL 0.4 mg/dL (0.0-1.0); CALCIUM 9.3 mg/dL (8.4-10.2); CREATININE, serum 0.4 (0.52-1.25); MAGNESIUM 1.6 mg/dL (1.6-2.3); TOTAL PROTEIN 7.1 gm/dL (6.4-8.2)
[2019-04-18 03:23] LABS: BAND 2 % (0-10); BASOPHIL 1 % (0-2); LYMPHOCYTE 5 % (20.0-51.0); NEUTROPHILS 86 % (42.0-75.2)
--- NOTE | 2019-04-18 05:47 | NUR ---
Sydni FLORENCE transporting to OR by bed, IV fluids infusing.
[2019-04-18 06:40] LABS: TRICYCLIC ANTIDEPRESS URINE NEGATIVE
--- NOTE | 2019-04-18 08:25 | NUR ---
Patient returns from surgery.
--- NOTE | 2019-04-18 12:00 | NUR ---
Patient drowsy, awakens to verbal stimuli. A/O x3. Abdomen soft, non tender, non distended. Bowel sounds hypoactive x4 quads. No flatus. Lap sites and midline incision with edges well approximated, no redness or drainage noted. Epidural infusing, PCEA settings verified against the MAR. No numbness or tingling noted to BLE. Epidural insertion site with no redness or drainage noted. No other c/o at this time.
--- NOTE | 2019-04-18 13:23 | NUR ---
Plan is to return home to [facility] with her BF Gene Chas . Patient reports that she has [facility] coming in for home health supports. Patient reports that her son Addison is also a POC . Patient reports that use of a walker, cane, and wheelchair prn. Patient reports having bifocal glassess. Patient reports that she has a living will and wish to be a DNR. Patient reports that use a a nebulizer prn, pcp is Brandon Morrell. Patient reports that she used IPR in the past and would use it again if necassary. Patient reports the use of [facility] in [place] for RX. Action: SW to continue to follow care for additional supports.
--- NOTE | 2019-04-18 20:54 | NUR ---
Pt doing ok. Alert and oriented with VSS. States she is in pain but feels a lot better than before. Dressing to abdomen CD&I. Has NS with 40KCL running to left AC. Epidural in place and running at 8ml/hr. Denies numbness or tingling, rate/dose matches MAR orders. Has hernandez catheter to dependent drainage, clear yellow urine. pt ambulatory in room, has had BM since surgery. pt denies needs at this time. call light within reach, will continue to monitor
--- NOTE | 2019-04-18 21:50 | NUR ---
Pt epidural site is bloody, slight amount of bloody drainage from bottom of dressing. Paged anesthesia. will await call
--- NOTE | 2019-04-18 22:53 | NUR ---
will continue to monitor epidural site, anaesthesia notified of bloody drainage. will re-inforce if drainage increases
--- NOTE | 2019-04-19 04:15 | NUR ---
Pt has had a couple episodes of large amts of liquidy stools, brown in color
--- NOTE | 2019-04-19 04:55 | NUR ---
Pt has done ok throughout night, voiding and having BMs ok. epidural in place running at 8ml/hr. Morales to dependent drainage, clear yellow urine. Denies needs at this time. Call light within reach, will continue to montior
[2019-04-19 07:07] LABS: BASO % 0.5 % (0.0-2.0); EOS # 0.1 (0.0-0.7); EOS % 1.2 % (0-4.0); GRAN # 4.2 (1.4-6.5); HEMATOCRIT 37.3 % (37.0-47.0); LYMPH # 1.1 (1.2-3.4); LYMPH % 18.4 % (20.0-51.0); MEAN CELL VOLUME 108 fl (80.0-100.0); MEAN CORPUSCULAR HEMOGLOBIN 35 pg (27.0-31.0); MEAN CORPUSCULAR HGB CONC 32 g/dl (33.0-37.0); MEAN PLATELET VOLUME 9.8 fl (7.4-10.4); MONO # 0.6 (0.1-0.6); MONO % 9.4 % (1.7-9.3); PLATELET COUNT 164 K/mm3 (130-400); RED BLOOD COUNT 3.47 M/mm3 (4.10-5.30); REDCELL DISTRIBUTION WIDTH-CV 13.1 % (11.5-14.5)
[2019-04-19 07:22] LABS: BILIRUBIN,TOTAL 0.4 mg/dL (0.0-1.0); CALCIUM 8.3 mg/dL (8.4-10.2); CREATININE, serum 0.47 (0.52-1.25); MAGNESIUM 1.9 mg/dL (1.6-2.3); POTASSIUM 3.7 mmol/L (3.4-5.0); TOTAL PROTEIN 5.6 gm/dL (6.4-8.2)
[2019-04-19 07:31] LABS: HEMOGLOBIN 12.1 g/dl (12.5-16.0)
[2019-04-19 07:54] VITALS: BP 132/79; PULSE 73; TEMP 98.4
--- NOTE | 2019-04-19 08:57 | NUR ---
Patient alert and oriented, answers questions appropriately. See assessment. Abdomen soft, non tender, non distended. Bowel sounds active x4 quads. +Flatus. +Bowel movement. Abdominal incisions with dressing CDI. Morales catheter patent and draining clear yellow urine. Epidural catheter in place, scant amount of drainage noted to insertion site. PCEA settings verified against MAR. Post op exercises reviewed with patient. No other c/o at this time.
[2019-04-19 11:33] VITALS: BP 122/71; PULSE 70; TEMP 98.3
[2019-04-19 16:00] VITALS: BP 144/77; PULSE 69; TEMP 97.7
--- NOTE | 2019-04-19 18:34 | NUR ---
Epidural continues to infuse into low back, drainage noted at site. No numbness or tingling to BLE. PCEA settings verified against the MAR. No c/o at this time.
[2019-04-19 19:29] VITALS: BP 146/85; PULSE 80; TEMP 98.5
--- NOTE | 2019-04-19 20:42 | NUR ---
Pt doing well. Alert and oriented with vss. Heart and lung sounds normal. Has fluids running [id number] to left forearm. Epidural in place running at 8ml/hr. compared to APR. denies numbess or tingling. Dressing to abdomen is CD&I. Pt voiding with no issues. Pt denies needs. Call light within reach, will continue to monitor
[2019-04-20 00:38] VITALS: BP 127/80; PULSE 71; TEMP 98.6
[2019-04-20 04:00] VITALS: BP 105/59; PULSE 70; TEMP 98
[2019-04-20 07:53] VITALS: BP 122/69; PULSE 85; TEMP 97.5
[2019-04-20] MEDS ORDERED: BUSPIRONE HCL7.5 MG PO (08:41)
--- NOTE | 2019-04-20 09:40 | NUR ---
Patient resting in bed at this time. Patient rouses easily, is alert and oriented while awake. Epidural alerted that it was empty this morning. Anesthesia paged and epidural changed by oncall anesthesia, dressing to epidural site also changed, that dressing is currently CDI. Dressing to ABD is CDI, small amount of shadowing at the bottom of the dressing. Patient denies further needs at this time, call light within reach.
--- NOTE | 2019-04-20 10:54 | NUR ---
Invasive Physician attended clinical rounds with the team. Patient able to eat some breakfast this morning. SW to continue to follow as needed.
[2019-04-20 11:55] VITALS: BP 133/86; PULSE 71; TEMP 98.5
[2019-04-20 15:57] VITALS: BP 136/81; PULSE 75; TEMP 98.7
--- NOTE | 2019-04-20 18:06 | NUR ---
Patient resting in bed eating dinner at this time. Patient is alert and oriented, answers questions appropriaitely. Patient reports that pain is well controlled with epidural. Epidural dressing remains CDI. No changes to dressing on abdomen. Patient denies needs at this time, call light within reach.
[2019-04-20 20:16] VITALS: BP 133/81; PULSE 74; TEMP 98.5
--- NOTE | 2019-04-21 00:02 | NUR ---
Patient doing well tonight. epidural infusing and controlling pain. patients IV to L FA discontinued due to clotting off. dressing to ABD CDI. not scoring on CIWA scale. independent bed bath done. no further needs at this time. will continue to monitor.
[2019-04-21 00:13] VITALS: BP 152/93; PULSE 69; TEMP 98.4
[2019-04-21 04:09] VITALS: BP 130/70; PULSE 65; TEMP 98
--- NOTE | 2019-04-21 06:08 | NUR ---
PATIENT DOING WELL TONIGHT. PAIN CONTROLLED WITH EPIDURAL. NEW GOWN APPLIED. HAD SOME WARM TEA THIS AM. NO FURTHER NEEDS AT THIS TIME. WILL CONTINUE TO MONITOR. REPORT OFF TO DAY SHIFT.
[2019-04-21 07:06] VITALS: BP 142/87; PULSE 67; TEMP 98.5
--- NOTE | 2019-04-21 07:59 | NUR ---
Lying in bed on right side. Having some nausea, thinnks it was due to eating beard and would like Zofran. Rates pain in abd 7/10 and describes pain as a cramp. Epidural still in place, tape intact. Midline lower abd incision with evangelina intact, edges well approximated, no redness/swelling/discharge.
--- NOTE | 2019-04-21 09:34 | NUR ---
Epidural to be dc'd at this time by NAMAN Melgar. NAMAN Melgar requests that pain medication be given prior to pulling the epidural. Contacted Dr. Draper and orders received. Administered Percocet as ordered. Patient aware that NAMAN Melgar, will be discontinuing the epidural sortly.
--- NOTE | 2019-04-21 10:30 | NUR ---
Epidural removed per orders. Tip intact patient tolerated well.
[2019-04-21 11:16] VITALS: BP 124/70; PULSE 76; TEMP 98.1
--- NOTE | 2019-04-21 12:42 | NUR ---
Patient requests to take shower. IV site covered. Patient provided with towels and wash cloths. Patient denies further needs. Bed linens changed.
--- NOTE | 2019-04-21 13:30 | NUR ---
Sitting up in bed watching TV. Says that she is starting to feel some cramping in her toes and this is how her pain normally starts off. Discussed how her Percocet is scheduled and when she is scheduled next for the Percocet. Patient verbalizes understanding. Denies further needs at this time.
[2019-04-21 15:39] VITALS: BP 139/72; PULSE 67; TEMP 98.4
--- NOTE | 2019-04-21 17:18 | NUR ---
Patient having pain in abd and feet. Rates the pain 10/10. Adminsitered scheduled Percocet as prescribed. Patient denies further needs at this time.
--- NOTE | 2019-04-21 18:42 | NUR ---
Up ambulating in room. Rates pain 6/10, says that it is getting better. Is continuing to work on eating her supper. Denies needs at this time.
--- NOTE | 2019-04-21 19:20 | NUR ---
Report received. Assumed care for security shift supervisor. A&Ox3. Assessment complete. VS stable. Denies nausea/shortness of breath. States bilat legs are bothering her-burning/tingling but is tolerable. INT to left AC flushes without difficulty. Midline incision-evangelina- edges well approximated/no drainage noted. Tolerating diet. Voiding without difficulty. Has ambulated in the hallways. Plan of care discussed for this shift to include ambulation/pain control/calling for needs. Denies questions/concerns. Call light in reach. Will monitor.
[2019-04-21 21:06] VITALS: BP 142/87; PULSE 74; TEMP 98.5
[2019-04-22 00:06] VITALS: BP 136/79; PULSE 70; TEMP 98.2
[2019-04-22 04:31] VITALS: BP 110/68; PULSE 72; TEMP 98.6
[2019-04-22 07:18] VITALS: BP 131/74; PULSE 77; TEMP 97.9
--- NOTE | 2019-04-22 07:45 | NUR ---
Patient alert and oriented-- shift assessment completed. INT in left antecubital, no reddness, edema, or drainage. Abdomen midline incision, evangelina intact, lower tenderness to touch and active bowel sounds in all quadrants, is passing flatus but has no had a bowel movement this morning. States that the pain is 8 out of 10, not localized. States that the pain is in the abdomen and he feet. Denies any nausea or vomiting at this time
--- NOTE | 2019-04-22 07:46 | NUR ---
Lying in bed with eyes open. Feet keep moving. Patient says that she is having pain in abd and feet that she rates 9/10 at this time. Says that the pain in her feet is a burning sensation and cramping in her pinky toes. Pain in abd is a soreness feeling which she expects. Patient would like to see if the provider can be contacted to see if her pain meds can be changed to how she takes them at home, Percocet 20mg every six hours, instead of every eight that she is on here, or if there is something additional that can be provided for pain. Patient is alert and oriented x3. Lungs CTA in all romero. HRR. Bowel sounds active in all quadrants, patient says that she is passing gas. Midline abd incision well approximated, all evangelina intact, no redness/swelling/discharge from site. Explained that we will contact the provider and we will let her know what was decided.
--- NOTE | 2019-04-22 07:54 | NUR ---
Spoke with KIET Irizarry, regarding patient pain and normal pain med routine and what she is on here. Edie says that she will review chart and see what can be done regarding her medication.
[2019-04-22 07:55] LABS: CALCIUM 8.8 mg/dL (8.4-10.2); CREATININE, serum 0.49 (0.52-1.25); POTASSIUM 3.8 mmol/L (3.4-5.0)
[2019-04-22 11:03] VITALS: BP 139/77; PULSE 71; TEMP 98.6
--- NOTE | 2019-04-22 11:21 | NUR ---
Leather Carver met with patient to review discharge plan. Patient still plans to return home upon discharge to [place]. Patient is hopeful she will get to go home today. No additional needs identified at this time.
[2019-04-22] MEDS ORDERED: ZOFRAN 4MG T4 MG/TAB PO (11:48)
--- NOTE | 2019-04-22 12:25 | NUR ---
Reviewed discharge instructions with the patient. Questions answered. Patient signs documents. Discharge packet provided to the patient. Patient has called her boyfriend to come pick her up so she is just waiting for him to arrive. Explain when she is ready to leave to push her call button and we will help her out by wheelchair. IV site in left AC dc'd at this time. Catheter intact. Applied 2x2s to site and reinforced with tape. Patient denies any further questions or concerns.
--- NOTE | 2019-04-22 13:30 | NUR ---
Patient's boyfriend here to take her home. Patient assisted out to POV via wheelchair by BRYAN Hernández.
== END 2019-04-22 13:30 | disposition home or self-care (01) | DRG 336 ==
LOC: COL.ER 10:41 → SURG 14:42
PROVIDERS: Emergency Medicine; Nurse Practitioner Family; Physician Assistant; Surgery; ADMIT Internal Medicine
PROC: 0DNU0ZZ Release Omentum, Open Approach (ICD-10-PCS; principal; 2019-04-18 06:00)
DX: K46.0 Unspecified abdominal hernia with obstruction, without gangrene (principal); G61.0 Guillain-Barre syndrome; E87.2 Acidosis; G89.4 Chronic pain syndrome; F41.9 Anxiety disorder, unspecified; F32.9 Major depressive disorder, single episode, unspecified; E03.9 Hypothyroidism, unspecified; I10 Essential (primary) hypertension; E87.6 Hypokalemia; E83.42 Hypomagnesemia; M54.9 Dorsalgia, unspecified; F17.210 Nicotine dependence, cigarettes, uncomplicated; E87.8 Other disorders of electrolyte and fluid balance, not elsewhere classified; G43.909 Migraine, unspecified, not intractable, without status migrainosus; D72.829 Elevated white blood cell count, unspecified; F10.10 Alcohol abuse, uncomplicated; Y90.0 Blood alcohol level of less than 20 mg/100 ml; Z98.84 Bariatric surgery status
CPT/HCPCS: 99222-AI; 99231-AI; 99232-AI; 99233-AI; A4314; A9284; J0330; J0360; J1100; J1170; J1630; J1650; J1885; J2060; J2250; J2405; J2550; J2704; J2710; J3010; J3411; J3475; J3480; J7030; Q9967

== ENCOUNTER → 2020-02-16 | Outpatient (CLI) | payer MEDICAID ==
[~2020-02-16] MED LIST changes: +BUSPIRONE HCL7.5 MG PO; +CYANOCOBAL1000 MCG/1 IM; +DAZIDOX20 MG PO; +PHENERGAN 25 TA25 MG PO; +PRILOSEC 20MG20 MG PO; +ZESTRIL 20MG TA20 MG PO
== END ==
LOC: COL.RAD 14:00
DX: M47.812 Spondylosis without myelopathy or radiculopathy, cervical region (principal); M48.02 Spinal stenosis, cervical region; G95.89 Other specified diseases of spinal cord; S32.008A Other fracture of unspecified lumbar vertebra, initial encounter for closed fracture; E03.9 Hypothyroidism, unspecified; G56.03 Carpal tunnel syndrome, bilateral upper limbs; G47.33 Obstructive sleep apnea (adult) (pediatric); Z98.1 Arthrodesis status

== ENCOUNTER → 2020-03-28 | Outpatient (CLI) | payer MEDICAID | LOC: COL.RAD 09:22 | DX: K66.1 Hemoperitoneum (principal) ==

== ENCOUNTER → 2020-04-20 | Outpatient (CLI) | payer MEDICAID | LOC: MHCPAIN 14:30 | DX: M47.812 Spondylosis without myelopathy or radiculopathy, cervical region (principal); M54.2 Cervicalgia; G89.29 Other chronic pain | CPT/HCPCS: G0463 ==

== ENCOUNTER → 2020-09-05 | Outpatient (CLI) | payer MEDICAID | LOC: MHCPAIN 09:55 | CPT/HCPCS: J1100; Q9967 ==

== ENCOUNTER 2020-11-12 15:15 | Emergency (ER) | payer MEDICAID ==
[~2020-11-12] VITALS: Ht 160 cm; Wt 68.6 kg
[2020-11-12 15:29] VITALS: BP 112/77; PULSE 75; TEMP 98
== END 2020-11-12 15:50 | disposition home or self-care (01) ==
LOC: COL.ER 15:15
DX: T82.594A Other mechanical complication of infusion catheter, initial encounter (principal)

== ENCOUNTER → 2021-01-25 | Outpatient (CLI) | payer MEDICAID | LOC: MHCPAIN 14:42 | DX: M47.812 Spondylosis without myelopathy or radiculopathy, cervical region (principal); M54.12 Radiculopathy, cervical region; G89.29 Other chronic pain | CPT/HCPCS: G0463 ==

== ENCOUNTER → 2021-02-09 | Outpatient (CLI) | payer MEDICAID | LOC: MHCPAIN 11:07 | DX: M47.812 Spondylosis without myelopathy or radiculopathy, cervical region (principal); M54.12 Radiculopathy, cervical region | CPT/HCPCS: J1100; Q9967 ==

== ENCOUNTER → 2021-06-07 | Outpatient (CLI) | payer MEDICAID | LOC: MHCPAIN 11:13 | DX: M47.812 Spondylosis without myelopathy or radiculopathy, cervical region (principal); M54.2 Cervicalgia; M54.12 Radiculopathy, cervical region; G89.29 Other chronic pain | CPT/HCPCS: G0463 ==

== ENCOUNTER → 2021-06-19 | Outpatient (CLI) | payer MEDICAID | LOC: MHCPAIN 10:55 | DX: M47.812 Spondylosis without myelopathy or radiculopathy, cervical region (principal); M54.12 Radiculopathy, cervical region | CPT/HCPCS: J1100; Q9967 ==

== ENCOUNTER → 2022-04-10 | Outpatient (CLI) | payer MEDICAID | LOC: MHCPAIN 13:05 | DX: M47.817 Spondylosis without myelopathy or radiculopathy, lumbosacral region (principal); M54.12 Radiculopathy, cervical region; M53.3 Sacrococcygeal disorders, not elsewhere classified; M54.50 Low back pain, unspecified | CPT/HCPCS: G0463 ==

== ENCOUNTER → 2022-05-10 | Outpatient (CLI) | payer MEDICAID | LOC: MHCPAIN 10:49 | DX: M47.817 Spondylosis without myelopathy or radiculopathy, lumbosacral region (principal); M54.50 Low back pain, unspecified; M53.3 Sacrococcygeal disorders, not elsewhere classified ==